=== PATIENT | male | born 1995 | race Two or more races ===

== ENCOUNTER 2024-12-04 18:47 | Emergency (ER) | payer MEDICAID, OTHER ==
[~2024-12-04] VITALS: Ht 167.6 cm; Wt 88.3 kg
[2024-12-04 19:23] LABS: Hematocrit 42.3 % (41.0-53.0); Hemoglobin 14.3 g/dL (13.5-17.5); Mean Corpuscular Hemoglobin 26.2 pg (28.0-32.0); Mean Corpuscular Volume 77.6 fL (80.0-100.0); Nucleated Red Blood Cells % 0.0 %
[2024-12-04 19:31] LABS: Chloride 101 mmol/L (98-107); Sodium 136 mmol/L (136-145)
[2024-12-04 19:32] LABS: Anion Gap 13 (5-15); Calcium 9.3 mg/dL (8.7-10.4); Carbon Dioxide 22 mmol/L (20-31)
[2024-12-04 19:34] LABS: Potassium 3.3 mmol/L (3.5-5.1)
[2024-12-04 19:37] LABS: BUN/Creatinine Ratio 9.8 (10.0-20.0); Blood Urea Nitrogen 12 mg/dL (9-23); Glucose 113 mg/dL (74-106)
[2024-12-04 19:38] LABS: Lipase 54 U/L (12-53)
--- NOTE | 2024-12-04 19:46 | ED.PDOC ---
GI ASSESSMENT HPI Comments 29-year-old male came to ER for nausea and vomiting. Patient states for the past 2 days he has been having abdominal pain/ midsternal chest pains, myalgia with the episodes of nausea, vomiting and nonbloody diarrhea. Patient concern of food poisoning, since family members that ate the same thing is also presenting with similar symptoms REVIEW OF SYSTEMS: No fever, no chills, or fatigue HEENT: No sore throat, no earache, no congestion, no neck pain. Cardiac: No chest pain. No palpitations. Lungs: No shortness of breath, no cough. GI: (+) nausea, (+) vomiting, (+) diarrhea, no constipation, (+) abdominal pain : No dysuria, frequency, or urgency. No hematuria. Musculoskeletal: No joint pain , no joint swelling, no extremity edema. Skin: No rash, no itching. Neuro: No headache, no dizziness, no weakness PHYSICAL EXAM: General: Awake, alert and oriented. No acute distress. Skin: Skin in warm, dry and intact without rashes or lesions. HEENT: The head is normocephalic and atraumatic. Conjunctivae are clear without exudates or hemorrhage. Sclera is non-icteric. Neck: Normal range of motion. No JVD. Cardiac: Regular rate Respiratory: No signs of respiratory distress. No Stridor. Extremities: Upper and lower extremities are atraumatic in appearance without deformity. Neurological: The patient is awake, alert and oriented to person, place, and time with normal speech. Speech is clear. There is no facial asymmetry. Psychiatric: Appropriate mood and affect. Good judgement and insight. Chief Complaint: Nausea/Vomiting Time Seen by MD: 19:46 Reviewed Notes: Nurses Notes Allergies: Coded Allergies: NO KNOWN ALLERGIES (Unverified , 12/04/24) Home Meds Active Scripts Potassium Chloride (POTASSIUM CHLORIDE CR) 10 Meq Tb, 1 TAB PO DAILY for 5 Days, #5 TAB 5 Refills Prov:CHARLIE MCMULLEN MD 12/04/24 Ondansetron Odt 4MG Tab (ZOFRAN PO) 4 Mg Tb, 4 MG PO TIDPRN PRN for 3 Days, #9 TAB ODT TAB-DISSOLVE IN MOUTH, THEN SWALLOW Prov:CHARLIE MCMULLEN MD 12/04/24 Information Source: Patient Mode of Arrival: Ambulatory Timing: Days Duration: Intermittent Past Medical History PAST MEDICAL HISTORY: Denies Surgical History: Denies all surgeries Family History Family History: Reviewed,noncontributory to illness Social History Smoker: Non-Smoker Alcohol: Denies ETOH Use Drugs: Denies Drug Use Lives In: Home Was a procedure done? Was a procedure done?: No GI differential Dx Differential Diagnosis: Cholecystitis, Diverticular disease, Gastritis/PUD, Gastroenteritis, Pancreatitis, UTI, Electrolyte Imbalance, Food Poisoning X-Ray, Labs, Meds, VS Vital Signs Date Time Temp Pulse Resp B/P (MAP) Pulse Ox O2 Delivery O2 Flow Rate FiO2 12/04/24 20:20 102.9 12/04/24 20:17 77 21 98 Room Air* 0 21 12/04/24 20:09 102.9 77 21 131/72 (91) 98 102.9 12/04/24 18:48 103.0 120 18 125/83 95 103.0 Lab Test 12/04/24 20:00 12/04/24 19:46 12/04/24 19:08 Range/Units SARS-CoV-2 Antigen (Rapid) Negative NEGATIVE Influenza Type A Antigen Negative Negative Influenza Type B Antigen Negative Negative White Blood Count 10.2 4.4-10.8 10^3/uL Red Blood Count 5.45 4.5-5.90 10^6/uL Hemoglobin 14.3 13.5-17.5 g/dL Hematocrit 42.3 41.0-53.0 % Mean Corpuscular Volume 77.6 L 80.0-100.0 fL Mean Corpuscular Hemoglobin 26.2 L 28.0-32.0 pg Mean Corpuscular Hemoglobin Concent 33.8 32.0-36.0 g/dL Red Cell Distribution Width 16.5 H 11.8-14.3 % Platelet Count 193 140-450 10^3/uL Mean Platelet Volume 10.6 6.9-10.8 fL Neutrophils (%) (Auto) 82.2 H 37.0-80.0 % Lymphocytes (%) (Auto) 12.1 10.0-50.0 % Monocytes (%) (Auto) 5.5 0.0-12.0 % Eosinophils (%) (Auto) 0.0 0.0-7.0 % Basophils (%) (Auto) 0.2 0.0-2.0 % Neutrophils # (Auto) 8.4 1.6-8.6 10 ^3/uL Lymphocytes # (Auto) 1.2 0.4-5.4 10 ^3/uL Monocytes # (Auto) 0.6 0-1.3 10 ^3/uL Eosinophils # (Auto) 0 0-0.8 10 ^3/uL Basophils # (Auto) 0 0-0.2 10 ^3/uL Nucleated Red Blood Cells 0.0 % Sodium Level 136 136-145 mmol/L Potassium Level 3.3 L 3.5-5.1 mmol/L Chloride Level 101 98-107 mmol/L Carbon Dioxide Level 22 20-31 mmol/L Anion Gap 13 5-15 Blood Urea Nitrogen 12 9-23 mg/dL Creatinine 1.22 0.700-1.30 mg/dL Glomerular Filtration Rate Calc 81 >90 mL/min BUN/Creatinine Ratio 9.8 L 10.0-20.0 Serum Glucose 113 H 74-106 mg/dL Calcium Level 9.3 8.7-10.4 mg/dL Lipase 54 H 12-53 U/L Time of 1ST Reevaluation: 19:43 Reevaluation 1ST: Unchanged Patient Education/Counseling: Need For Follow Up Family Education/Counseling: No Family Present SEPSIS Sepsis Screen Date sepsis recognized/suspect: Dec 04, 2024 Time Sepsis recognized/suspect: 1849 Recent Procedure: No On Antibiotic Therapy: No Respiratory Rate >20: No Heart Rate >90: Yes Temp<36 C (96.8 F) or >38.3 C: Yes SBP <90 or MAP <65 mmHG: No New Acute Mental Status Change: No Is the patient on CPAP, BIPAP,: No Vital Signs Date Time Temp Pulse Resp B/P (MAP) Pulse Ox O2 Delivery O2 Flow Rate FiO2 12/04/24 20:20 102.9 12/04/24 20:17 77 21 98 Room Air* 0 21 12/04/24 20:09 102.9 77 21 131/72 (91) 98 102.9 12/04/24 18:48 103.0 120 18 125/83 95 103.0 Laboratory Tests Test 12/04/24 19:08 White Blood Count 10.2 10^3/uL (4.4-10.8) Departure 1 Departure Time of Disposition: 21:02 Impression: Primary Impression: Nausea & vomiting Additional Impression: Hypokalemia Disposition: 01 HOME / SELF CARE / HOMELESS Condition: Stable Additional Instructions: ED DISCHARGE INSTRUCTIONS Instructions: Please read all instructions provided in this packet carefully. Although you have been discharged from the Emergency Department, this does not mean that you have a "clean bill of health". No definitive diagnosis for your symptoms has been made today. It is possible that you are in the process of developing a serious illness. This is why you must return to the ED without fail if any new or worsening symptoms (especially if your symptoms include chest pain, trouble breathing, abdominal pain, fever, headache, confusion, trouble seeing, or trouble walking) It is also very important that you see a primary care provider (PCP) within the next 3-5 days to follow up. If you are unable to get an appointment, return to the ED for re-evaluation. Nausea and Vomiting: Care Instructions Overview When you are nauseated, you may feel weak and sweaty and notice a lot of saliva in your mouth. Nausea often leads to vomiting. Most of the time you do not need to worry about nausea and vomiting, but they can be signs of other illnesses. Two common causes of nausea and vomiting are a stomach infection and food poisoning. Nausea and vomiting from a viral stomach infection will usually start to improve within 24 hours. Nausea and vomiting from food poisoning may last from 12 to 48 hours. The doctor has checked you carefully, but problems can develop later. If you notice any problems or new symptoms, get medical treatment right away. Follow-up care is a tellez part of your treatment and safety. Be sure to make and go to all appointments, and call your doctor if you are having problems. It's also a good idea to know your test results and keep a list of the medicines you take. How can you care for yourself at home? To prevent dehydration, drink plenty of fluids. Choose water and other clear liquids until you feel better. If you have kidney, heart, or liver disease and have to limit fluids, talk with your doctor before you increase the amount of fluids you drink. Rest in bed until you feel better. When you are able to eat, try clear soups, mild foods, and liquids until all symptoms are gone for 12 to 48 hours. Other good choices include dry toast, crackers, cooked cereal, and gelatin dessert, such as Jell-O. When should you call for help? Call 911 anytime you think you may need emergency care. For example, call if: You passed out (lost consciousness). Call your doctor now or seek immediate medical care if: You have symptoms of dehydration, such as: Dry eyes and a dry mouth. Passing only a little urine. Feeling thirstier than usual. You have new or worsening belly pain. You have a new or higher fever. You vomit blood or what looks like coffee grounds. Watch closely for changes in your health, and be sure to contact your doctor if: You have ongoing nausea and vomiting. Your vomiting is getting worse. Your vomiting lasts longer than 2 days. You are not getting better as expected. Credits for Nausea and Vomiting: Care Instructions Current as of: February 13, 2023 Author: [employer] Staff Clinical Review Board All [employer] education is reviewed by a team that includes physicians, nurses, advanced practitioners, registered dieticians, and other healthcare professionals. It is very important that you follow up with your primary care physician (PCP). You can call your insurance company or check your insurance card to find out who your PCP is. Or call [phone] to schedule an appointment with a new primary care provider. WHY YOU NEED A PCP: Establishing and regularly seeing a PCP and undergoing routine screenings are vital for maintaining good health. Your PCP acts as your main healthcare partner, helping you stay healthy, manage chronic conditions, and detect potential problems early. Routine screenings, like mammograms or colonoscopies, can catch diseases like cancer early when treatment is often more effective. A screening test is like a quick check-up your doctor does to see if there are any problems starting in your body, even when you feel okay, so they can find them early when they're easier to fix. Why Establish a Relationship with a Primary Care Physician (PCP)? Preventive Care: Your PCP focuses on preventing illness through regular checkups, vaccinations, and health advice tailored to your needs. Chronic Disease Management: If you have a chronic condition, like diabetes or high blood pressure, your PCP can help you manage it effectively through monitoring, medication management, and lifestyle recommendations. Early Detection: Regular visits allow your PCP to track your health over time, identify subtle changes, and order necessary screenings or tests to catch potential problems early. Trusted Resource: Your PCP gets to know you, your medical history, and your concerns, making them a trusted resource for all your health-related questions. Referrals: If you need specialized care, your PCP will refer you to the appropriate specialists and help coordinate your care. Continuity of Care: Your PCP ensures that your healthcare is coordinated, especially after hospital stays or visits to other specialists. Why are Routine Screenings Important? Early Detection: Many serious illnesses like cancer, diabetes and heart disease, can be treated more successfully when detected early. Screenings like lab tests, blood pressure checks, mammograms, colonoscopies, and Pap smears are designed to catch these diseases early. Preventing Disease: Some screenings can actually help prevent diseases from developing. Peace of Mind: Knowing that you are up-to-date on your screenings can provide peace of mind and reduce anxiety about potential health problems. In summary, establishing a relationship with a primary care physician and following their recommendations for routine screenings is important for staying healthy and managing your health effectively. It's an investment in your well- being that can pay off in the long run. e-Prescriptions Potassium Chloride (POTASSIUM CHLORIDE CR) 10 Meq Tb 1 TAB PO DAILY for 5 Days, #5 TAB 5 Refills Prov: CHARLIE MCMULLEN MD 12/04/24 Ondansetron Odt 4MG Tab (ZOFRAN PO) 4 Mg Tb 4 MG PO TIDPRN PRN for 3 Days, #9 TAB ODT TAB-DISSOLVE IN MOUTH, THEN SWALLOW Prov: CHARLIE MCMULLEN MD 12/04/24 Comments 29-year-old male with nausea, vomiting after eating from a restaurant, multiple family members with similar symptoms. Patient is well-appearing, nontoxic. Vit al signs stable. Potassium replaced. Other Diagnostic results reviewed and are not urgently actionable. Patient is felt stable for discharge home. Patient advised to follow up with primary care provider promptly and return to the emergency department with any new, worsening or concerning symptoms. I reviewed the following notes from the pt's past medical encounters: N/A The following tests were ordered, and results were reviewed by me: (See diagnostic results section) The following test were independently interpreted by me: N/A Additional information was gathered from interviewing the following independent historians: N/A I reviewed and agreed with the following test results read by other providers: N/A I discussed treatments and results with patient Decision regarding hospitalization or escalation of hospital level of care: Risks and benefits of admission for further treatment of patient's condition was considered however due to patient's stable condition patient will be discharged to follow up closely or return to care for worsening of condition or inability to follow up. Critical Care Note Critical Care Time?: No Stability Stability form required: No Heart Score Heart Score: Heart Score Response (Comments) Value History N/A 0 EKG N/A 0 Age N/A 0 Risk Factors N/A 0 Troponin N/A 0 Total 0 I personally scribed for CHARLIE MCMULLEN MD ([email or web address]) on 12/04/24 at 19:46. Electronically submitted by Juan Carlos Hutton ([email or web address]). I personally scribed for CHARLIE MCMULLEN MD ([email or web address]) on 12/04/24 at 19:53. Electronically submitted by Juan Carlos Hutton ([email or web address]). CHARLIE MCMULLEN MD Dec 04, 2024 19:46
[2024-12-04 20:09] VITALS: BP 131/72
[2024-12-04 20:17] VITALS: PULSE 77; RESP 21; O2SAT 98
[2024-12-04 20:20] VITALS: TEMP 102.9
[2024-12-04] MEDS: ACETAMINOPHEN 500 MG TAB or CAP PO ONE (20:20)
[2024-12-04 20:56] LABS: COVID19 ANTIGEN SOFIA FIA NEGATIVE (NEGATIVE)
[2024-12-04] MEDS ORDERED: ZOFR4T PO (21:04)
[2024-12-04] MEDS ORDERED: POTA-36 PO (21:04)
[2024-12-04] MEDS: POTASSIUM CHL 20 Meq TABLET PO ONE (21:26)
== END 2024-12-04 21:40 | disposition home or self-care (01) ==
LOC: ER 18:57
DX: E87.6 Hypokalemia (principal); R11.2 Nausea with vomiting, unspecified; R07.89 Other chest pain; Z20.822 Contact with and (suspected) exposure to COVID-19; Z79.899 Other long term (current) drug therapy
CPT/HCPCS: 36415; 80048; 83690; 85025; 87426; 87804